=== PATIENT | male | born 1970 | race Caucasian/White ===

== ENCOUNTER 2019-02-22 10:24 | Day surgery (SDC) | payer OTHER ==
[~2019-02-22] VITALS: Ht 188 cm; Wt 163.8 kg
[~2019-02-22 10:24] MED LIST: LIDOCAINE 1%-EPI 1:100K, 20ML ONE; ROPIvacaine/PF 0.5%, 30 ML ONE
[2019-02-22 10:41] VITALS: BP 160/94
[2019-02-22] MEDS ORDERED: LACTATED RINGERS 1,000 ML IV SCH (10:43)
[2019-02-22] MEDS ORDERED: IBUP-1623 PO (10:46)
[2019-02-22] MEDS ORDERED: LISI-170 PO (10:46)
[2019-02-22] MEDS ORDERED: MIDAZOLAM 1 MG/ML, 2ML ONE (12:09)
[2019-02-22] MEDS ORDERED: FENTANYL PF 100 MCG/2ML ONE ×3 (12:09→13:28)
[2019-02-22] MEDS ORDERED: ACETAMINOPHEN 325 MG TABLET PO PRN (13:00)
[2019-02-22] MEDS ORDERED: MEPERIDINE/PF 25MG/0.5ML IVPush PRN (13:00)
[2019-02-22] MEDS ORDERED: DIAZEPAM 5 MG/ML, 2ML IVPush PRN (13:00)
[2019-02-22] MEDS ORDERED: ALBUTEROL SULFATE 2.5 MG/3 ML NPPB PRN (13:00)
[2019-02-22] MEDS ORDERED: LABETALOL 5MG/ML, 20ML IV PRN (13:00)
[2019-02-22] MEDS ORDERED: HYDROmorphone 2 MG/ML, 1ML IVPush PRN (13:00)
[2019-02-22] MEDS ORDERED: PROMETHAZINE 25 MG/ML, 1ML IV PRN (13:00)
[2019-02-22] MEDS ORDERED: hydrALAzine 20 MG/ML, 1ML IV PRN (13:00)
[2019-02-22] MEDS ORDERED: KETOROLAC 30 MG/1 ML IV PRN (13:00)
[2019-02-22] MEDS ORDERED: OXYcodone 5 MG/5 ML ORAL.SOL UDC PO PRN (13:00)
[2019-02-22] MEDS ORDERED: ONDANSETRON 2MG/ML, 2ML ONE (13:24)
[2019-02-22] MEDS ORDERED: PROPOFOL 10 MG/ML, 20ML ONE (13:24)
[2019-02-22] MEDS ORDERED: CEFAZOLIN 1,000 MG ONE (13:24)
[2019-02-22] MEDS ORDERED: DEXAMETHASONE 4 MG/ML, 1ML ONE (13:24)
[2019-02-22] MEDS ORDERED: OXYcodone 5 MG/5 ML ORAL.SOL UDC ONE (13:28)
[2019-02-22] MEDS: FENTANYL PF 100 MCG/2ML IV PRN ×4 (13:30→13:45)
[2019-02-22] MEDS ORDERED: KETOROLAC 30 MG/1 ML ONE (13:48)
== END 2019-02-22 15:00 | disposition home or self-care (01) ==
LOC: OUT 10:24
PROVIDERS: ATTEND Orthopaedic Surgery
DX: S83.231A Complex tear of medial meniscus, current injury, right knee, initial encounter (principal); S83.281A Other tear of lateral meniscus, current injury, right knee, initial encounter; M94.261 Chondromalacia, right knee; F15.90 Other stimulant use, unspecified, uncomplicated; I10 Essential (primary) hypertension; G47.33 Obstructive sleep apnea (adult) (pediatric); Z72.89 Other problems related to lifestyle; X58.XXXA Exposure to other specified factors, initial encounter; Y93.89 Activity, other specified; Y92.89 Other specified places as the place of occurrence of the external cause; Y99.8 Other external cause status
CPT/HCPCS: 29873; 29880; J0690; J1100; J1885; J2250; J2405; J2704; J2795; J3010; J3490; J7120

== ENCOUNTER 2020-02-20 13:56 | Outpatient (CLI) | payer OTHER ==
[~2020-02-20 13:56] MED LIST changes: +IBUP-1623 PO; -LIDOCAINE 1%-EPI 1:100K, 20ML ONE; +LISI-170 PO; -ROPIvacaine/PF 0.5%, 30 ML ONE
[2020-02-21] MEDS ORDERED: LORA10TA75 PO (12:37)
[2020-02-21] MEDS ORDERED: NAPR220C2 PO (12:37)
== END 2020-02-20 23:59 | disposition home or self-care (01) ==
LOC: STAR 13:56
PROVIDERS: ATTEND Orthopaedic Surgery
DX: Z02.9 Encounter for administrative examinations, unspecified (principal)

== ENCOUNTER 2020-02-21 12:08 | Day surgery (SDC) | payer OTHER ==
[~2020-02-21] VITALS: Ht 188 cm; Wt 167.3 kg
[~2020-02-21 12:08] MED LIST changes: +LIDOCAINE/PF 1%-EPI 1:200K, 30 ML ONE; +ROPIvacaine/PF 0.5%, 30 ML ONE
[2020-02-21 12:24] VITALS: BP 183/108
[2020-02-21] MEDS ORDERED: CHLORHEXIDINE 15 ML UDC MM ONE (12:30)
[2020-02-21] MEDS ORDERED: PLEASE ENTER HEIGHT AND WEIGHT MC SCH (12:30)
[2020-02-21] MEDS ORDERED: LACTATED RINGERS 1,000 ML IV SCH (12:30)
[2020-02-21] MEDS ORDERED: FENTANYL PF 100 MCG/2ML ONE (12:36)
[2020-02-21] MEDS ORDERED: MIDAZOLAM 1 MG/ML, 2ML ONE (12:37)
[2020-02-21] MEDS ORDERED: LORA10TA75 PO (12:37)
[2020-02-21] MEDS ORDERED: NAPR220C2 PO (12:37)
[2020-02-21] MEDS ORDERED: KETOROLAC 30 MG/1 ML ONE (12:38)
[2020-02-21] MEDS ORDERED: ONDANSETRON 2MG/ML, 2ML ONE (12:39)
[2020-02-21] MEDS ORDERED: PROPOFOL 10 MG/ML, 20ML ONE (12:39)
[2020-02-21] MEDS ORDERED: CEFAZOLIN 1,000 MG ONE (12:39)
[2020-02-21] MEDS ORDERED: DEXAMETHASONE 4 MG/ML, 1ML ONE (12:39)
[2020-02-21 12:45] VITALS: BP 170/106
[2020-02-21] MEDS ORDERED: LABETALOL 5MG/ML, 20ML IV PRN (13:00)
[2020-02-21] MEDS ORDERED: ACETAMINOPHEN 325 MG TABLET PO PRN ×2 (13:00)
[2020-02-21] MEDS ORDERED: FENTANYL PF 100 MCG/2ML IV PRN (13:00)
[2020-02-21] MEDS ORDERED: PROMETHAZINE 25 MG/ML, 1ML IVPush PRN (13:00)
[2020-02-21] MEDS ORDERED: MEPERIDINE/PF 25MG/0.5ML IVPush PRN (13:00)
[2020-02-21] MEDS ORDERED: hydrALAzine 20 MG/ML, 1ML IV PRN (13:00)
[2020-02-21] MEDS ORDERED: OXYcodone 5 MG/5 ML ORAL.SOL UDC PO PRN (13:00)
[2020-02-21] MEDS ORDERED: HYDROmorphone 1 MG/ML, 1ML INJ IVPush PRN (13:00)
[2020-02-21] MEDS ORDERED: ALBUTEROL SULFATE 2.5 MG/3 ML NPPB PRN (13:00)
[2020-02-21] MEDS ORDERED: LORazepam 2 MG/ML, 1ML IVPush PRN (13:00)
[2020-02-21] MEDS ORDERED: hydrALAzine 20 MG/ML, 1ML ONE (13:14)
[2020-02-21] MEDS ORDERED: LIDOCAINE-MPF 2% ,5ML ONE (13:43)
[2020-02-21] MEDS ORDERED: ACETAMINOPHEN 325 MG TABLET ONE (14:32)
[2020-02-21] MEDS ORDERED: OXYcodone 5 MG/5 ML ORAL.SOL UDC ONE (14:32)
[2020-02-21] MEDS ORDERED: ACETAMINOPHEN 650 MG/20.3 ML UDC ONE (14:32)
== END 2020-02-21 16:20 | disposition home or self-care (01) ==
LOC: OUT 12:08
PROVIDERS: ATTEND Orthopaedic Surgery
DX: S83.242A Other tear of medial meniscus, current injury, left knee, initial encounter (principal); S83.282A Other tear of lateral meniscus, current injury, left knee, initial encounter; M22.42 Chondromalacia patellae, left knee; Z20.828 Contact with and (suspected) exposure to other viral communicable diseases; M65.862 Other synovitis and tenosynovitis, left lower leg; M23.42 Loose body in knee, left knee; E66.01 Morbid (severe) obesity due to excess calories; I10 Essential (primary) hypertension; G47.33 Obstructive sleep apnea (adult) (pediatric); Z79.899 Other long term (current) drug therapy; Z82.49 Family history of ischemic heart disease and other diseases of the circulatory system; X58.XXXA Exposure to other specified factors, initial encounter; Y93.89 Activity, other specified; Y92.89 Other specified places as the place of occurrence of the external cause; Y99.8 Other external cause status
CPT/HCPCS: 29880; 87635; J0360; J0690; J1100; J1885; J2250; J2405; J2704; J2795; J3010; J7120